=== PATIENT | female | born 1990 | race African-American/Black ===

== ENCOUNTER 2022-03-22 12:24 | Emergency (ER) | payer BC ==
[~2022-03-22] VITALS: Ht 165.1 cm; Wt 65.8 kg
--- NOTE | 2022-03-22 12:53 | NUR ---
TO ER 6 AWAITING MD GO.NURIS
--- NOTE | 2022-03-22 13:42 | NUR ---
RAPID COVID DONE AND SENT TO LAB
[2022-03-22] MEDS ORDERED: predniSONE 20 MG TABLET PO ONE (14:30)
[2022-03-22] MEDS ORDERED: ALBUTEROL FS 2.5 MG/3 ML VIAL.NEB NEB ONE (14:30)
[2022-03-22] MEDS ORDERED: predniSONE 20 MG TABLET ONE (14:41)
[2022-03-22] MEDS ORDERED: ALBUTEROL FS 2.5 MG/3 ML VIAL.NEB ONE (14:51)
--- NOTE | 2022-03-22 15:18 | NUR ---
RAPID INFLUENZA AND COVID PCR DONE AND SENT TO LAB
[2022-03-22] MEDS ORDERED: PRED20TA PO (16:02)
[2022-03-22] MEDS ORDERED: ALBU18HF2 INH (16:02)
--- NOTE | 2022-03-22 16:18 | NUR ---
Patient discharged to home in stable condition. Written and verbal after care instructions given. Patient verbalizes understanding of instruction.
[2022-03-22 16:19] VITALS: BP 130/90
== END 2022-03-22 16:19 | disposition home or self-care (01) ==
LOC: ER 12:35
DX: J20.9 Acute bronchitis, unspecified (principal); Z20.822 Contact with and (suspected) exposure to COVID-19; J45.909 Unspecified asthma, uncomplicated
CPT/HCPCS: 99284; 71045; 87426; 87804; 94640; U0003; J7512; C9803 ×2

== ENCOUNTER 2024-12-17 10:16 | Emergency (ER) | payer BC ==
[~2024-12-17] VITALS: Ht 160 cm; Wt 81.6 kg
[~2024-12-17 10:16] MED LIST: ALBU18HF2 INH; PRED20TA PO
[2024-12-17 11:36] LABS: BASOPHILS % (AUTO) 0.3 % (0.0-2.0); EOSINOPHILS # (AUTO) 0.1 K/uL (0.0-0.7); EOSINOPHILS % (AUTO) 0.6 % (0.0-6.0); HEMATOCRIT 35 % (33-45); HEMOGLOBIN 11.6 g/dL (11.5-14.8); LYMPHOCYTES % (AUTO) 30.6 % (20.0-44.0); MEAN CORPUSCULAR HEMOGLOBIN 30 PG (26.0-33.0); MEAN CORPUSCULAR HGB CONC 33 g/dl (31.0-36.0); MEAN CORPUSCULAR VOLUME 89 fL (82-100); MONOCYTES # (AUTO) 0.7 K/uL (0.1-1.30); MONOCYTES % (AUTO) 7.1 % (2.0-12.0); NEUTROPHILS # (AUTO) 6.1 K/uL (1.8-8.9); NEUTROPHILS % (AUTO) 61.4 % (43.0-81.0); PLATELET COUNT (AUTO) 262 K/uL (150-450); RED BLOOD CELL COUNT(AUTO) 3.92 MIL/uL (4.0-5.2); RED CELL DISTRIBUTION WIDTH 14.2 % (11.5-15.0); WHITE BLOOD COUNT (AUTO) 9.9 K/uL (4.3-11.0)
[2024-12-17 11:49] LABS: ALBUMIN 3.8 g/dL (3.4-5.0); BILIRUBIN,DIRECT 0.1 mg/dL (0.0-0.2); BILIRUBIN,TOTAL 0.4 mg/dL (0.2-1.0); CREATININE 0.6 mg/dL (0.6-1.3); TOTAL PROTEIN, SERUM 7.3 g/dL (6.4-8.2)
[2024-12-17] MEDS: IV NS 0.9% 1,000 ML BAG IV ONE (12:00)
[2024-12-17] MEDS ORDERED: ONDANSETRON HCL/PF 4 MG/2 ML VIAL ONE (12:03)
[2024-12-17] MEDS ORDERED: MORPHINE SULFATE INJ 4 MG/ML DISP.SYRIN ONE (12:03)
[2024-12-17] MEDS: ONDANSETRON HCL/PF 4 MG/2 ML VIAL IVP ONE (12:07)
[2024-12-17] MEDS: MORPHINE SULFATE INJ 2 MG/ML DISP.SYRIN IV ONE (12:10)
[2024-12-17 12:36] LABS: APPEARANCE,URINE CLEAR (CLEAR); BILIRUBIN,URINE NEGATIVE (NEGATIVE); BLOOD, URINE NEGATIVE Ery/uL (NEGATIVE); COLOR,URINE YELLOW (YELLOW); KETONES,URINE NEGATIVE (NEGATIVE); LEUKOCYTE ESTERASE ,URINE NEGATIVE (NEGATIVE); NITRITE, URINE NEGATIVE (NEGATIVE); PH,URINE 6.5 (5.0-8.0); PROTEIN,URINE NEGATIVE (NEGATIVE); UGLUCOSE NEGATIVE (NEGATIVE); UROBILINOGEN,URINE 0.2 EU/dL (0.2)
[2024-12-17] MEDS ORDERED: IBUP-1955 PO (13:04)
[2024-12-17 14:02] VITALS: BP 125/80; TEMP 98.2; O2SAT 98
== END 2024-12-17 14:00 | disposition home or self-care (01) ==
LOC: ER 10:22
DX: N83.201 Unspecified ovarian cyst, right side (principal); J45.909 Unspecified asthma, uncomplicated; R10.2 Pelvic and perineal pain; Z79.52 Long term (current) use of systemic steroids; Z60.2 Problems related to living alone
CPT/HCPCS: 99285; 74176; 96374; 76856; 96361; 96375; 85025; 80048; 83690; 80076; 81003; 36415; 84702; J2270; J2405; J7030